=== PATIENT | female | born 1985 | race Caucasian/White ===

== ENCOUNTER 2017-04-29 08:36 | Emergency (ER) | payer OTHER ==
--- NOTE | ~2017-04-29 | ER ---
PATIENT'S NAME: MIRANDA [facility] AGE: 31 Y [address] ROOM: [place] [address] LOCATION: [facility] ADMIT DATE: 04/29/2017 ER/Outpatient Report DISCHARGE DATE: FAMILY PHYSICIAN: Lindsay Spain MD ATTENDING PHYSICIAN: Karsten Yang CHIEF COMPLAINT: Chest pain and shortness of breath. HISTORY OF PRESENT ILLNESS: Ms. Jean Baptiste was at a conference at a hotel here in town today when she developed chest discomfort, epigastric pain, and a panic attack. She has taken [id number] medications including Tylenol and ibuprofen this morning for same. The exact time of onset is unclear, but it was this morning. It got significantly worse while at the conference approximately 20 to 30 minutes prior to arrival. EMS was contacted and they did administer Zofran prior to arrival. The patient states that her pain is severe and she has never had anything like this before. She is a nonsmoker with no known medical history of hypertension, high cholesterol, or diabetes. She has no known family history of heart disease. PAST MEDICAL HISTORY: As documented on the record and reviewed by me. SOCIAL HISTORY: As documented on the record and reviewed by me. MEDICATIONS: As documented on the record and reviewed by me. ALLERGIES: DOCUMENTED ON THE RECORD AND REVIEWED BY ME. REVIEW OF SYSTEMS: All systems reviewed and negative except as noted in the HPI. PHYSICAL EXAMINATION: VITAL SIGNS: Blood pressure 113/75, pulse 62, respiratory rate is 18, temperature 97.9, and SpO2 is 100% on room air. Pain is moderate to severe. GENERAL: An age appropriate female, in obvious pain. No respiratory distress. position on exam table. NEUROLOGIC: Awake and alert. GCS appears to be 15, although distracted by pain. No focal deficits. No asymmetry. HEENT: Normocephalic and atraumatic. Eyes are PERRL. Oropharynx is clear. NECK: Supple. Trachea is midline. PATIENT'S NAME: MIRANDA [facility] AGE: 31 Y [address] ROOM: [place], [place] [address] LOCATION: [facility] ADMIT DATE: 04/29/2017 ER/Outpatient Report DISCHARGE DATE: FAMILY PHYSICIAN: Lindsay Spain MD ATTENDING PHYSICIAN: Karsten Yang HEART: Regular rate and rhythm with no murmurs. LUNGS: Clear to auscultation bilateral. No rhonchi, wheezes, or rales. ABDOMEN: Soft with some tenderness in the epigastrium and right upper quadrant. No masses. No rebound. Re-examination was benign. BACK: Normal to inspection and palpation. No CVA tenderness. No spinal tenderness. EXTREMITIES: Warm and well perfused. No edema or deformities. SKIN: Appears to be clean, dry, and intact. LABORATORY DATA AND X-RAYS: Chest x-rays are unremarkable. Abdominal films do have a nonspecific gas pattern. No free air. No volvulus. Initial and repeat EKGs were obtained and negative for acute pathology. Initial and repeat CK-MB and CPK are not elevated. Her concerning urinalysis not consistent with infection. CMS with no electrolyte or renal abnormalities. AST mildly elevated at 75. Amylase and lipase are within normal limits. HCG is not elevated. CBC: White count 13.8, 11.6 neutrophils, hemoglobin 14.6, and platelets of 302. INR is 1. Lactate is 2. Initial and repeat EKGs are unremarkable as above. No evidence of ischemia or dysrhythmia. CT of the abdomen is unremarkable per Radiology. Right upper quadrant ultrasound unremarkable per Radiology. IMPRESSION: 1. Chest pain versus epigastric pain, not otherwise specified. 2. Mildly elevated liver enzymes. EMERGENCY DEPARTMENT COURSE: The patient was seen evaluated as above. She was given Zofran, morphine, and a GI cocktail. She had near complete resolution of all symptoms. She was feeling much better. 2-hour cardiac rule out was obtained. Presentation not consistent with bowel ischemia, cardiac ischemia, pneumonia, or other hepatobiliary pathology. Unclear etiology as to the elevation of the AST. The patient was feeling much better and was ultimately discharged with instructions to follow up as needed. Return as needed. Home with a prescription for tramadol as needed. KARSTEN YANG MD PATIENT'S NAME: MIRANDA [facility] AGE: 31 Y [address] ROOM: [place], [place] [address] LOCATION: [facility] ADMIT DATE: 04/29/2017 ER/Outpatient Report DISCHARGE DATE: FAMILY PHYSICIAN: Lindsay Spain MD ATTENDING PHYSICIAN: Karsten Yang/gennal /[id number] d: 04/30/17221 t: 05/09/17720, OUTPATIENT REPORT
[2017-04-29 09:15] LABS: PROTIME 10.5 SECONDS (9.8-11.4); PTT 28 SECONDS (25-32)
[2017-04-29 09:18] LABS: BASOPHIL % 0.2 %; EOSINOPHIL # 0.1 K/uL (0.0-0.5); EOSINOPHIL % 0.7 %; HEMATOCRIT 42.6 % (33.0-46.0); HEMOGLOBIN 14.6 g/dL (11.0-15.0); IMMATURE GRANULOCYTE # 0.1 K/uL (0.0-0.3); IMMATURE GRANULOCYTE % 0.5 %; LYMPHOCYTE # 1.5 K/uL (0.8-4.0); LYMPHOCYTE % 10.5 %; MCH 30.7 pg (27.0-34.0); MCHC 34.3 gm/dL (32.0-36.5); MCV 89.7 fl (83.0-98.0); MONOCYTE # 0.6 K/uL (0.0-1.0); MONOCYTE % 4.1 %; NEUTROPHIL # (ANC) 11.6 K/uL (1.8-7.8); NRBC % 0 /100WBC (0-0.00); PLATELET COUNT 302 K/uL (150-450); RDW-CV 12.3 % (11.9-14.6); WBC 13.8 K/uL (4.0-11.0)
[2017-04-29 09:19] LABS: RBC 4.75 M/uL (3.50-5.50)
[2017-04-29 09:31] LABS: ALBUMIN 3.7 gm/dL (3.5-5.0); ALK PHOS 77 IU/L (33-138); ALT 51 IU/L (12-78); ANION GAP 12.9 (10.0-19.0); AST 75 IU/L (10-40); BLOOD UREA NITROGEN 15 mg/dL (6-24); CALCIUM 8.5 mg/dL (8.5-10.5); CHLORIDE 109 mMol/L (96-110); CO2 22 mMol/L (22-32); CPK 70 IU/L (21-215); CREATININE 0.7 mg/dL (0.5-1.1); POTASSIUM 3.9 mMol/L (3.7-5.1); SODIUM 140 mMol/L (135-145); TOTAL BILIRUBIN 0.5 mg/dL (0.0-1.5); TOTAL PROTEIN 7.4 g/dL (6.0-8.4)
[2017-04-29 10:49] LABS: BILIRUBIN URINE NEGATIVE (NEGATIVE); BLOOD URINE NEGATIVE /UL (NEGATIVE); COLOR URINE YELLOW (YELLOW); GLUCOSE URINE NEGATIVE (NEGATIVE); KETONE URINE NEGATIVE (NEGATIVE); LEUKOCYTES URINE NEGATIVE /UL (NEGATIVE); NITRITE URINE NEGATIVE (NEGATIVE); PH URINE 6.5 (4.0-8.0); PROTEIN URINE 30 mg/dL (NEGATIVE); SPEC GRAVITY URINE 1.015 (1.003-1.035); TURBIDITY URINE CLEAR (CLEAR); UROBILINOGEN URINE NORMAL (NORMAL)
[2017-04-29 11:09] LABS: BACTERIA URINE FEW (NEGATIVE); EPITHELIAL URINE 0-2 #/HPF (NEGATIVE); MUCUS URINE 1+ (NEGATIVE); RBC URINE RARE #/HPF (NEGATIVE); WBC URINE RARE #/HPF (NEGATIVE)
[2017-04-29 11:25] LABS: CPK 67 IU/L (21-215)
== END 2017-04-29 12:14 | disposition disaster alternative care site (69) ==
LOC: GMED 08:36
PROVIDERS: Emergency Medicine
DX: R07.89 Other chest pain (principal); R10.13 Epigastric pain; R74.8 Abnormal levels of other serum enzymes; Z88.8 Allergy status to other drugs, medicaments and biological substances; Z88.1 Allergy status to other antibiotic agents; Z79.899 Other long term (current) drug therapy; Z98.890 Other specified postprocedural states; Z88.5 Allergy status to narcotic agent
CPT/HCPCS: J2270; J2405; Q9967

== ENCOUNTER → 2017-04-29 | Outpatient (CLI) | payer OTHER | END | disposition disaster alternative care site (69) | LOC: GAMB 08:11 | DX: R19.7 Diarrhea, unspecified (principal); F41.9 Anxiety disorder, unspecified; R11.0 Nausea; R07.9 Chest pain, unspecified; R10.13 Epigastric pain; Z79.1 Long term (current) use of non-steroidal anti-inflammatories (NSAID); Z79.899 Other long term (current) drug therapy; Z88.6 Allergy status to analgesic agent | CPT/HCPCS: A0425; A0427; J2405; J7030 ==